=== PATIENT | male | born 1940 | race Caucasian/White ===

== ENCOUNTER 2022-01-26 12:08 | Emergency (ER) | payer MEDICARE, SELFPAY ==
--- NOTE | 2022-01-26 12:11 | ED.DENTAL ---
HPI - Dental/Oral General Chief complaint: Dental/Oral Stated complaint: tooth pain / swollen jaw Time Seen by Provider: 01/26/22 12:12 Source: patient and RN notes reviewed History of Present Illness HPI Narrative: Patient is a 81-year-old male who presents the urgent care with his son with complaints of lower left jaw swelling and dental pain. Patient states its been bothering him for the last 3 days however the son states that the swelling was not there as of yesterday. Patient has been given ibuprofen for his pain. Patient son states that he is always slightly confused and nothing has changed with his consciousness or neurological status. Patient ambulates with a cane. Answers questions semi-appropriately. No other acute complaints. No acute distress noted. Patient and son aware of the plan of care. Some parts of this dictation were generated by voice recognition software and may contain typographical and/or grammatical inaccuracies. Related Data Home Medications Medication Instructions Recorded Confirmed Unknown 01/26/22 carvedilol 6.25 mg tablet tablet 01/26/22 citalopram 10 mg tablet tablet 01/26/22 clopidogrel 75 mg tablet tablet 01/26/22 metformin 500 mg tablet tablet 01/26/22 pravastatin 40 mg tablet tablet 01/26/22 01/26/22 Allergies Allergy/AdvReac Type Severity Reaction Status Date / Time No Known Allergies Allergy Verified 01/26/22 12:28 Review of Systems Review of Systems: CONSTITUTIONAL: Denies fever, chills, or sweats. EYES: Denies visual changes, redness, or discharge. ENT: Denies rhinorrhea, congestion, sore throat, or otalgia. Reports of left lower jaw swelling and dental pain CARDIOVASCULAR: Denies chest pain, palpitations, or edema. RESPIRATORY: Denies cough or dyspnea. GASTROINTESTINAL: Denies abdominal pain, nausea, vomiting, or diarrhea. GENITOURINARY: Denies dysuria or hematuria. SKIN: Denies rash or itching. MUSCULOSKELETAL: Denies back pain, joint pain, or myalgia. NEUROLOGIC: Denies headache, numbness, or weakness. All other systems reviewed are negative, except as documented in HPI. PMFSH Comments At the time of my signature, I reviewed and agree with the nursing past medical, surgical, social, and family history. There is no relevant family history pertinent to the patient complaint. Exam Narrative: GENERAL: This is a well-nourished, well-developed patient, in no apparent distress. HEAD: normocephalic, atraumatic. EYES: PERRL. Sclera clear/white. Vision is grossly intact. EARS: External ears normal, auditory canals clear and without drainage, left TM normal without perforation. Hearing grossly intact. NOSE: External nose normal with no obvious nasal discharge, nares without redness, no rhinorrhea. THROAT: Mucous membranes moist, posterior pharynx clear. DENTAL: Moderate calculus buildup to anterior lower dentition, poor hygiene throughout, carious lesions noted throughout, missing dentition noted. Obvious periodontal disease/gingivitis. Erythemic, edematous gingiva to the anterior lower teeth numbers 26 through 21 NECK: Neck supple CARDIOVASCULAR: Regular rate RESPIRATORY: Crackles throughout without wheezes SKIN: Dusky/jaundice. Warm, intact with no suspicious lesions or rash, good texture and turgor. NEURO: awake, alert, and oriented to person, place and time. There were no obvious focal neurologic abnormalities. EXTREMITIES: No clubbing, cyanosis, or edema. Course Course Level of Care: Express Care Visit Vital Signs Vital signs: Vital Signs Temperature 97.7 F 01/26/22 12:16 Pulse Rate 75 01/26/22 12:16 Respiratory Rate 16 01/26/22 12:16 Blood Pressure 96/72 L 01/26/22 12:16 Pulse Oximetry 100 01/26/22 12:16 Oxygen Delivery Room Air 01/26/22 12:16 Temperature 97.7 F 01/26/22 12:16 Pulse Rate 75 01/26/22 12:16 Respiratory Rate 16 01/26/22 12:16 Blood Pressure 96/72 L 01/26/22 12:16 Pulse Oximetry 100 01/26/22 12:16 Oxygen
[2022-01-26 12:16] VITALS: BP 96/72; PULSE 75; RESP 16; TEMP 36.5; O2SAT 100
== END 2022-01-26 12:36 | disposition home or self-care (01) ==
PROVIDERS: Emergency Provider Nurse Practitioner Family; PCP Family Medicine
DX: K04.7 Periapical abscess without sinus (principal); K02.9 Dental caries, unspecified; K05.10 Chronic gingivitis, plaque induced; E78.00 Pure hypercholesterolemia, unspecified; I10 Essential (primary) hypertension
CPT/HCPCS: 99213; G0463